=== PATIENT | female | born 1990 | race Caucasian/White ===

== ENCOUNTER → 2018-08-09 12:10 | Outpatient (CLI) | payer OTHER, SELFPAY ==
[2018-08-09 12:32] LABS: Add Manual Diff / Slide Review NO; Basophils Absolute Auto 0 /uL (0-100); Basophils Percent Auto 0.3 % (0-2); Eosinophils Absolute Auto 100 /uL (0-450); Hematocrit 43.5 % (36-46); Hemoglobin 15.1 g/dL (12.0-16.0); Lymphocytes Absolute Auto 2100 /uL (1100-4500); Lymphocytes Percent Auto 23.9 % (25-40); Mean Corpuscular HGB Conc 34.6 % (30-36); Mean Corpuscular Volume 89.4 fL (80-100); Monocytes Absolute Auto 600 /uL (0-900); Monocytes Percent Auto 6.9 % (3-14); Neutrophils Absolute Auto 6000 /uL (1500-7000); Neutrophils Percent Auto 67.9 % (50-75); Platelet Count 262 X10^3/uL (150-400); Red Blood Cell Count 4.87 X10^6/uL (4.0-5.2); Red Cell Distribution Width 13.2 % (11.6-14.8); White Blood Cell Count 8.8 X10^3/uL (4.5-11.0)
[2018-08-09 12:44] LABS: Alanine Aminotransferase 29 IU/L (9-52); Albumin 4.6 g/dL (3.5-5.0); Albumin Globulin Ratio 1.7 (1.0-2.8); Alkaline Phosphatase 96 U/L (38-126); Aspartate Aminotransferase 20 IU/L (14-36); BUN Creatinine Ratio 15.7 (6-22); Bilirubin Total 0.2 mg/dL (0.2-1.3); Blood Urea Nitrogen 11 mg/dL (7-17); Calcium 9.7 mg/dL (8.4-10.2); Carbon Dioxide 24 mmol/L (22-32); Chloride 101 mmol/L (98-107); Estimated Glomerular Filt Rate > 60.0 mL/min (>60); Globulin 2.7 g/dL (1.7-4.1); Glucose 88 mg/dL (70-100); HEMOLYSIS < 15 (0-50); Sodium 138 mmol/L (137-145); Total Protein 7.3 g/dL (6.3-8.2)
[2018-08-09 13:13] LABS: TSH w/ Reflex to FT4 1.82 uIU/mL (0.47-4.68)
== END ==
PROVIDERS: PCP Family Medicine; Visit Provider Family Medicine
DX: R53.83 Other fatigue (principal)
CPT/HCPCS: 36415; 80053; 84443; 85025

== ENCOUNTER → 2018-09-20 11:22 | Outpatient (CLI) | payer OTHER, SELFPAY ==
[2018-09-20 12:04] LABS: Add Manual Diff / Slide Review NO; Basophils Absolute Auto 0 /uL (0-100); Basophils Percent Auto 0.3 % (0-2); Eosinophils Absolute Auto 100 /uL (0-450); Eosinophils Percent Auto 1.2 % (2-4); Hematocrit 41.6 % (36-46); Hemoglobin 14.2 g/dL (12.0-16.0); Lymphocytes Absolute Auto 1800 /uL (1100-4500); Lymphocytes Percent Auto 23.3 % (25-40); Mean Corpuscular HGB Conc 34.2 % (30-36); Mean Corpuscular Volume 90.8 fL (80-100); Monocytes Absolute Auto 500 /uL (0-900); Monocytes Percent Auto 6.8 % (3-14); Neutrophils Absolute Auto 5400 /uL (1500-7000); Neutrophils Percent Auto 68.4 % (50-75); Platelet Count 241 X10^3/uL (150-400); Red Blood Cell Count 4.58 X10^6/uL (4.0-5.2); White Blood Cell Count 7.9 X10^3/uL (4.5-11.0)
[2018-09-20 12:38] LABS: Appearance Urine UA CLEAR; Bilirubin Urine UA NEGATIVE (NEGATIVE); Color Urine UA YELLOW; Glucose Urine UA NEGATIVE (Negative); Ketones Urine UA NEGATIVE (NEGATIVE); Leukocyte Esterase Urine UA TRACE (NEGATIVE); Nitrite Urine UA NEGATIVE (Negative); Occult Blood Urine UA TRACE-LYSED (Negative); Protein Urine UA NEGATIVE (Negative); Specific Gravity Urine UA 1.015 (1.000-1.035); Urobilinogen Urine UA 0.2 E.U./dL (0.2)
[2018-09-20 12:51] LABS: Bacteria Urine None Seen
[2018-09-20 13:01] LABS: Amorphous Sediment Urine 1+; RBC Urine 0-1/HPF (0-5/HPF); Squamous Epithelial Cell Urine 5-10 /HPF; WBC Urine 5-10/HPF (0-5/HPF)
[2018-09-20 17:16] LABS: Hepatitis B Surface Antigen NEGATIVE s/c (NEGATIVE)
[2018-09-20 17:17] LABS: Rubella Antibody IgG 16.9 IU/mL (>15)
[2018-09-20 17:39] LABS: HIV 1 and 2 Antibody NEGATIVE (NEGATIVE); Hep C Virus Ab w/Reflex Quant NEGATIVE s/c (NEGATIVE)
[2018-09-22 12:44] LABS: RPR Screen Nonreactive (Nonreactive)
== END ==
PROVIDERS: PCP Family Medicine; Visit Provider Family Medicine
DX: Z34.81 Encounter for supervision of other normal pregnancy, first trimester (principal)
CPT/HCPCS: 36415; 80055; 81003; 81015; 86703; 86787; 86803; 86850; 86900; 86901; 87077; 87086

== ENCOUNTER → 2018-11-21 16:12 | Outpatient (CLI) | payer OTHER, SELFPAY ==
[2018-11-27 14:10] LABS: AFP, Serum 27.7 ng/mL; Cigarette Smoker NOT GIVEN; Donated Egg NOT GIVEN; Donor Egg Age NOT GIVEN; Estriol, Free 0.83 ng/mL; Inhibin A, Dimeric 140 pg/mL; Maternal Ethnicity CAUCASIAN; Maternal Weight 170 lbs; Number of Fetuses 1; Previous Pregnancy Down Syndro NOT GIVEN; hCG, MoM 1.03; hCG, Serum 33.3 IU/mL
== END ==
PROVIDERS: PCP Family Medicine; Visit Provider Family Medicine
DX: Z34.80 Encounter for supervision of other normal pregnancy, unspecified trimester (principal); Z3A.16 16 weeks gestation of pregnancy
CPT/HCPCS: 36415; 82105; 82677; 84702; 86336

== ENCOUNTER → 2018-12-19 08:09 | Outpatient (CLI) | payer OTHER, SELFPAY ==
--- NOTE | 2018-12-19 08:10 | DI.US.S_ITS ---
PROCEDURE: US OB >= 14 WEEKS FETUS INDICATIONS: 20 WEEK SCREENING OUTSIDE/PRIOR DATING DATA: Last menstrual period (LMP): Not available. LMP-based estimated date of delivery (EH): Not available. First dating scan (date and location): 09/26/2018 at [facility]. Estimated date of delivery (EH) from first dating scan: 05/08/2019. TECHNIQUE: Real-time scanning was performed of the fetus, with image documentation and biometric measurements. Endovaginal scanning: Not performed COMPARISON: [facility], , OB >= 14 WEEKS FETUS, 09/26/2018, 8:25. FINDINGS: General: A single living intrauterine gestation is present. Presentation: Transverse. Placenta: Placental position is posterior, without previa. Amniotic fluid index: 15.7 cm (the largest pocket 4.7 cm), normal range is 5-24 cm. heart rate: 153 beats per minute. Maternal cervical canal: 4.0 cm long. Normal lower limit is 2.5 cm. biometrics: Biparietal diameter: 19 weeks 5 days Head circumference: 20 weeks 0 day Abdominal circumference: 20 weeks 3 days Femur length: 19 weeks 6 days Estimated gestational age from initial scan: 20 weeks 0 day. Composite gestational age from present scan: 20 weeks 0 day Estimated weight and percentile: 355 gm, 54% for gestational age Measurement variability for biometric dating: +/- 7 days from 14 weeks to 15 weeks 6 days gestation, +/- 10 days from 16 weeks to 21 weeks 6 days gestation, +/- 2 weeks from 22 weeks to 27 weeks 6 days gestation, +/- 3 weeks for 28 weeks gestation or later. weight reference: 4500 g or EFW >90/95% is considered macrosomia or large for gestational age. EFW <10% is small for gestational age. EFW 5% or less is considered intra-uterine growth restriction. Anatomic survey: Neuro: Ventricles are non-dilated at less than 10 mm. Cisterna magna is normal at 3-11 mm. Cerebellum is normal in size and morphology. Nuchal skin fold: Normal at less than 6 mm between 14-21 weeks gestational age. Face: Nose and lips, facial profile are normal. Spine: No evidence for spina bifida. Heart: 4-chambered heart is present, with normal ventricular outflow tracts. Diaphragm: Diaphragm is intact. Stomach: Left-sided stomach is present. Kidneys: No hydronephrosis. Normal is less than 5 mm in 2nd trimester, less than 7 mm in 3rd trimester. Cord: 3-vessel cord has orthotopic insertion. Bladder: Normal in size. Extremities: All 4 extremities identified. IMPRESSION: 1. A single living intrauterine gestation with appropriate interval growth. 2. Normal anatomic survey. Dictated by: Ean So M.D. on 12/19/2018 at 13:33 Approved by: Ean So M.D. on 12/19/2018 at 13:37
== END ==
PROVIDERS: PCP Family Medicine; Visit Provider Family Medicine
DX: Z36.89 Encounter for other specified antenatal screening (principal); Z3A.20 20 weeks gestation of pregnancy
CPT/HCPCS: 76811

== ENCOUNTER → 2019-01-26 08:16 | Outpatient (CLI) | payer OTHER, SELFPAY ==
[2019-01-26 10:12] LABS: Hematocrit 36.9 % (36-46); Hemoglobin 12.7 g/dL (12.0-16.0)
[2019-01-26 10:25] LABS: GTT (PREG) 1 Hour PP 50gm Dose 166 mg/dL (76-139)
== END ==
PROVIDERS: PCP Family Medicine; Visit Provider Family Medicine
DX: Z34.02 Encounter for supervision of normal first pregnancy, second trimester (principal); Z3A.24 24 weeks gestation of pregnancy
CPT/HCPCS: 36415; 82950; 85014; 85018

== ENCOUNTER → 2019-02-05 08:29 | Outpatient (CLI) | payer OTHER, SELFPAY ==
[2019-02-05 10:31] LABS: Glucose 1 Hour Gest 185 mg/dL (76-180)
[2019-02-05 10:37] LABS: Glucose Fasting Gestational 75 mg/dL (76-95)
[2019-02-05 11:28] LABS: Glucose 2 Hour Gest 159 mg/dL (76-155)
[2019-02-05 11:48] LABS: Glucose Tol Interp,Gestational INTERPRETATION
[2019-02-05 13:09] LABS: Glucose 3 Hour Gest 85 mg/dL (76-140)
== END ==
PROVIDERS: PCP Family Medicine; Visit Provider Family Medicine
DX: O99.810 Abnormal glucose complicating pregnancy (principal)
CPT/HCPCS: 36415; 82951; 82952

== ENCOUNTER 2019-03-30 10:05 | Outpatient (CLI) | payer OTHER, SELFPAY | END 2019-03-30 10:44 | disposition home or self-care (01) | LOC: LABOR 10:17 → OB 04-03 13:15 | PROVIDERS: PCP Family Medicine; Visit Provider Family Medicine | DX: O24.415 Gestational diabetes mellitus in pregnancy, controlled by oral hypoglycemic drugs (principal); Z3A.34 34 weeks gestation of pregnancy | CPT/HCPCS: 59025; G0378; G0379 ==

== ENCOUNTER 2019-04-06 09:37 | Outpatient (CLI) | payer OTHER, SELFPAY | END 2019-04-06 10:06 | disposition home or self-care (01) | LOC: OB 04-10 12:39 | PROVIDERS: PCP Family Medicine; Visit Provider Family Medicine | DX: O24.415 Gestational diabetes mellitus in pregnancy, controlled by oral hypoglycemic drugs (principal); Z3A.35 35 weeks gestation of pregnancy | CPT/HCPCS: 59025; G0378; G0379 ==

== ENCOUNTER → 2019-04-11 08:41 | Outpatient (CLI) | payer OTHER, SELFPAY ==
[2019-04-12 13:43] LABS: Strep Grp B PCR NEG for Grp B Strep
== END ==
PROVIDERS: PCP Family Medicine; Visit Provider Family Medicine
DX: Z34.83 Encounter for supervision of other normal pregnancy, third trimester (principal); Z3A.36 36 weeks gestation of pregnancy
CPT/HCPCS: 87653

== ENCOUNTER 2019-04-11 10:08 | Outpatient (CLI) | payer OTHER, SELFPAY ==
--- NOTE | 2019-04-16 06:07 | P.TNLD_ITS ---
Visit Information Visit Information Date of evaluation: 04/11/19 Primary OB Provider: Nicanor King On-call OB Provider: Yola Nieves Reason for Evaluation: Yes non-stress test non-stress test reason: diabetes [facility] Medical History (Updated 04/16/19 @ 06:09 by Yola Nieves MD) Gestational diabetes (Acute) Social History marital status: number of children: 1 household members: spouse and children Smoking Status: Former smoker alcohol intake: never substance use type: does not use Social History marital status: number of children: 1 household members: spouse and children Smoking Status: Former smoker alcohol intake: never substance use type: does not use Evaluation Evaluation Baseline heart rate: 130 Variability: Moderate (11-25) monitor accelerations: Present monitor decelerations: Absent Category of Tracing: I Diagnosis, Plan/Disposition Plan/Disposition Plan: Assessment 28-year-old with gestational diabetes with a category 1 nonstress test Plan: Follow-up with OB provider as scheduled Repeat nonstress test in 1 week OB Disposition: home
== END 2019-04-11 11:15 | disposition home or self-care (01) ==
LOC: OB 04-13 13:38
PROVIDERS: PCP Family Medicine; Visit Provider Family Medicine
DX: O24.415 Gestational diabetes mellitus in pregnancy, controlled by oral hypoglycemic drugs (principal); Z3A.36 36 weeks gestation of pregnancy
CPT/HCPCS: 59025; 87653; G0378; G0379

== ENCOUNTER 2019-04-18 09:44 | Outpatient (CLI) | payer OTHER, SELFPAY | END 2019-04-18 10:40 | disposition home or self-care (01) | LOC: LABOR 10:12 → OB 04-19 09:09 | PROVIDERS: PCP Family Medicine; Visit Provider Family Medicine | DX: O24.415 Gestational diabetes mellitus in pregnancy, controlled by oral hypoglycemic drugs (principal); Z3A.37 37 weeks gestation of pregnancy | CPT/HCPCS: 59025; G0378; G0379 ==

== ENCOUNTER 2019-04-25 09:40 | Outpatient (CLI) | payer OTHER, SELFPAY | END 2019-04-25 10:30 | disposition home or self-care (01) | LOC: OB 04-30 15:01 | PROVIDERS: PCP Family Medicine; Visit Provider Family Medicine | DX: O24.415 Gestational diabetes mellitus in pregnancy, controlled by oral hypoglycemic drugs (principal); Z3A.38 38 weeks gestation of pregnancy | CPT/HCPCS: 59025; G0378; G0379 ==

== ENCOUNTER 2019-05-03 05:44 | Inpatient (IN) | payer OTHER, SELFPAY ==
[2019-05-03 06:30] VITALS: BP 101/65
[2019-05-03 06:39] LABS: Add Manual Diff / Slide Review NO; Basophils Absolute Auto 0 /uL (0-100); Basophils Percent Auto 0.5 % (0-2); Eosinophils Absolute Auto 0 /uL (0-450); Eosinophils Percent Auto 0.6 % (2-4); Hematocrit 37.6 % (36-46); Hemoglobin 12.7 g/dL (12.0-16.0); Lymphocytes Absolute Auto 1400 /uL (1100-4500); Lymphocytes Percent Auto 21.5 % (25-40); Mean Corpuscular HGB Conc 33.7 % (30-36); Mean Corpuscular Hemoglobin 30.3 PG (26-34); Mean Corpuscular Volume 90.1 fL (80-100); Monocytes Absolute Auto 500 /uL (0-900); Neutrophils Absolute Auto 4400 /uL (1500-7000); Neutrophils Percent Auto 69.4 % (50-75); Platelet Count 144 X10^3/uL (150-400); Red Blood Cell Count 4.18 X10^6/uL (4.0-5.2); Red Cell Distribution Width 14.2 % (11.6-14.8); White Blood Cell Count 6.4 X10^3/uL (4.5-11.0)
[2019-05-03] MEDS: LACTATED RINGERS 1,000 ML 999 ML IV (06:40)
[2019-05-03] MEDS: LACTATED RINGERS 1,000 ML 100 ML IV ×2 (06:50→12:01)
--- NOTE | 2019-05-03 07:09 | PM.HP.1 ---
History of Present Illness History of Present Illness Date Patient Seen: 05/03/19 Time Patient Seen: 07:10 Chief complaint: [id number] REPEAT Narrative: 28-year-old female G1 para 2 estimated delivery date of 05/08/2019 she is 39 weeks +2 days. She is admitted to the hospital for repeat section previous done for failure to progress and distress. Baby's weight at that time was 7 lb 5 oz. Patient establish care at 9 weeks gestational age. Her initial weight was 170 lb. Current weight is 190 lb. With a total weight gain of 20 lb during the . 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 Her blood sugars and diet were well controlled her weight gain was well controlled. medication list includes citalopram metformin and vitamins. During her we she received the Tdap and flu vaccine a GBS status is negative. Other blood work shows O-positive blood type antibody screen negative hepatitis-B surface antigen negative HIV negative rubella immune GC chlamydia negative 1st trimester aneuploidy screen negative repeat hemoglobin 12.7 abnormal 1 hour GGT at 166 as well as abnormal 3 hour GGT. Twenty week ultrasound showed normal anatomy scan. During the last trimester patient had weekly NSTs with normal reactive strips. Patient states today she is feeling fine has no concerns or complaints of headache dizziness lightheadedness fevers chills nausea vomiting. Past medical history of patient includes anxiety and depression Okeefe syndrome Previous surgical history includes and colonoscopies annually. Social history. Patient was smoking pre has quit during the . Patient History Medical History (Updated 04/16/19 @ 06:09 by Yola Nieves MD) Gestational diabetes (Acute) Social History marital status: number of children: 1 household members: spouse and children Smoking Status: Former smoker alcohol intake: never substance use type: does not use Family & Social History Social History: household members spouse,children Tobacco & Substance use: Smoking Status Former smoker alcohol intake never Meds Home Medications and Allergies Home Medications Medication Instructions Recorded Confirmed Type citalopram 10 mg tablet 10 mg PO DAILY #30 tab 11/13/18 05/03/19 Rx metformin 500 mg tablet 500 mg PO BID #60 tab 02/13/19 05/03/19 Rx Allergies Allergy/AdvReac Type Severity Reaction Status Date / Time No Known Drug Allergies Allergy Verified 05/03/19 06:32 Exam Vital Signs (past 8 hours): - 05/03/19 06:30 Blood Pressure 101/65 Narrative Exam Narrative: . General: Alert no apparent distress. Affect is appropriate. Dwight it is uncomfortable. HEENT: Neck is supple without lymphadenopathy pupils equal round and reactive. Cardio: S1-S2 regular rate and rhythm. Respiratory: Lungs clear to auscultation. Abdomen: Gravid. Extremities: Normal deep tendon reflexes trace edema. [place]: Sporadic contractions heart tones: heart tones 135 category 1 tracing Objective Labs Result Diagrams: 05/03/19 06:15 Labs: Laboratory Results - last 24 hr 05/03/19 06:15 WBC 6.4 RBC 4.18 Hgb 12.7 Hct 37.6 MCV 90.1 MCH 30.3 MCHC 33.7 RDW 14.2 Plt Count 144 L Neut % (Auto) 69.4 Lymph % (Auto) 21.5 L [place] % (Auto) 8.0 Eos % (Auto) 0.6 L Baso % (Auto) 0.5 Neut # (Auto) 4400 Lymph # (Auto) 1400 [place] # (Auto) 500 Eos # (Auto) 0 Baso # (Auto) 0 Assessment & Plan Assessment & Plan narrative: 28-year-old female G2 para 1 at 39+ weeks comes in today for repeat section. Preoperative orders were written for type and screen CBC and IV fluids. Antibiotics have a T10 percussion instrument repairer. Reviewed procedure with patient patient's partner and family her in the room. Discussed risks benefits and common complications. Reviewed previous signed consent the patient. Risks of procedure including bleeding infection injury to bladder or bowel. We discussed the postoperative recourse and anesthesia for the procedure. All patient questions were answered. Patient's blood counts were normal platelet count was normal. A type and screen is good. Patient's GBS status is reviewed.
[2019-05-03] MEDS: CEFOTETAN 2 GM/50 ML PIGGYBACK IV (08:05)
--- NOTE | 2019-05-03 08:18 | SUR.OPER ---
Surgical consent was not signed, that's why patient is few minutes late in OR.
--- NOTE | 2019-05-03 08:21 | SUR.OPER ---
Supine on Padded OR bed, head on pillow, safety belt at thigh, arms secured on padded arm boards at <90 degrees abduction. Bump under right buttock. Legs uncrossed with pillow under knees, gel pad to heels, tape over blanket to lower legs.
--- NOTE | 2019-05-03 08:45 | SUR.OPER ---
FHR 135 TOB 08:27 alive girl Cord blood x 2 and placenta given to OB nurse
--- NOTE | 2019-05-03 09:14 | P.PCN_ITS ---
Procedures Date/Time Date of procedure: 05/03/19 Time of procedure: 09:14 General Procedure description: Procedure: Lower segment transverse section Consent: Verbal and written informed consent were obtained from the patient placed on the chart. Indications: 28-year-old G2 para 1 repeat section Findings: Normal uterus normal ovaries Normal female infant in vertex position Anesthesia: Spinal Surgeon: Dr. Nicanor King Bulk Plant Supervisor: Dr. Mini Nieves Estimated blood loss: 500 mL Drains: Jernigan to gravity. IV fluids: 1800 LR Description of procedure: The patient was brought to the operating room after her spinal epidural, preparation, and Jernigan had been performed. The abdomen was prepped and draped in tested for for analgesia. When it was found to be adequate, a lower abdominal Pfannenstiel incision was made with first with a knife and cared down to the fascia with a second knife. The fascia was incised in the midline and extended laterally with a knife. Bleeding points were clamped with hemostats a nd Bovie coagulated. The rectus muscles were by blunt dissection. The rectus muscles were divided in the midline and the peritoneum was grasped with hemostats and carefully entered with Amor scissors. The incision was extended bilaterally. The bladder blade was then placed. The vesicoperitoneum was grasped with smooth pickups, entered with Metzenbaum scissors, and extended laterally. The bladder flap was created by gently blunt dissection and placed behind the bladder blade. The lower uterine segment was noted not to be fully developed it was carefully incised with the scalpel and extended laterally with the fingers. A live was found to be in the vertex position. The head was then easily elevated with the hand. Head was delivered with the use of a vacuum. The baby was then suctioned and cried immediately, and was handed to the waiting attendant. The placenta was delivered manually. The uterus was explored with a wet lap sponge and found to be clear membranes. The first layer of the uterine closure was with running locking #1 chromic catgut suture. The second layer with an imbricating #1 chromic catgut suture. Hemostasis was carefully checked and fou nd to be satisfactory. The bladder flap was closed with a running 2-0 chromic catgut suture. After sponge and needle counts were found to be correct the peritoneum was closed with 2-0 chromic catgut suture. Rectus muscles were approximated in the lower midline. The fascia was closed with a 2 running 0 Vicryl from lateral to midline. The subcutaneous tissue was approximated with interrupted 2.0 plain gut. Bleeding points were Bovie and coagulated. The subcutaneous tissue was approximated with 2.0 plain gut suture. The skin was closed with 1-0 running subcuticular stitch. Urinary output was adequate and normal patient left to the recovery room in good condition.
[2019-05-03 09:22] VITALS: BP 114/60; BP 97/64; PULSE 65; PULSE 71; RESP 12; RESP 18; TEMP 36.5; O2SAT 96; O2SAT 97
[2019-05-03 09:27] VITALS: BP 101/66; PULSE 61; RESP 16; O2SAT 96
[2019-05-03 09:32] VITALS: BP 104/64; PULSE 64; RESP 17; O2SAT 97
[2019-05-03 09:37] VITALS: BP 108/57; PULSE 61; RESP 16; O2SAT 95
[2019-05-03 09:42] VITALS: BP 102/66; PULSE 65; RESP 17; O2SAT 96
--- NOTE | 2019-05-03 09:56 | SUR.PHASEI ---
Pt transferred to BC 1 in stable condition. Pad changed with a small amount bleeding noted with only a small clot noted. Fundas is 3 finger below umbilicus and spinal is at the T8 level. Oral intake provided and pt tolerated well. VSS on transfer
[2019-05-03] MEDS: diphenhydrAMINE 50 MG/ML VIAL 25 MG IV (10:19)
[2019-05-03] MEDS: HYDROCODONE/ACET 5/325 TABLET 2 TAB PO (11:34)
[2019-05-03] MEDS: NALBUPHINE 20 MG/ML AMPUL 5 MG IV ×2 (11:55→18:12)
[2019-05-03] MEDS: KETOROLAC 30 MG/ML VIAL IV ×2 (14:12→19:54)
[2019-05-03] MEDS: OXYCODONE/ACETAMINOPHEN 5/325 TABLET 2 TAB PO ×2 (16:03→19:53)
[2019-05-04] MEDS: OXYCODONE/ACETAMINOPHEN 5/325 TABLET 2 TAB PO ×6 (00:22→20:48)
[2019-05-04] MEDS: KETOROLAC 30 MG/ML VIAL IV (01:59)
[2019-05-04 08:33] LABS: Add Manual Diff / Slide Review NO; Basophils Absolute Auto 0 /uL (0-100); Basophils Percent Auto 0.3 % (0-2); Eosinophils Absolute Auto 0 /uL (0-450); Eosinophils Percent Auto 0.7 % (2-4); Hematocrit 33.1 % (36-46); Hemoglobin 11.4 g/dL (12.0-16.0); Lymphocytes Absolute Auto 1100 /uL (1100-4500); Lymphocytes Percent Auto 18.7 % (25-40); Mean Corpuscular HGB Conc 34.4 % (30-36); Mean Corpuscular Hemoglobin 30.9 PG (26-34); Mean Corpuscular Volume 89.9 fL (80-100); Monocytes Absolute Auto 500 /uL (0-900); Monocytes Percent Auto 7.7 % (3-14); Neutrophils Absolute Auto 4300 /uL (1500-7000); Neutrophils Percent Auto 72.6 % (50-75); Platelet Count 117 X10^3/uL (150-400); Red Blood Cell Count 3.69 X10^6/uL (4.0-5.2); Red Cell Distribution Width 14.3 % (11.6-14.8)
[2019-05-04] MEDS: PRENATAL VIT,CALC/IRON/FOLIC 1 TABLET 1 TAB PO (08:47)
--- NOTE | 2019-05-04 09:56 | PM.PN.1 ---
Subjective Subjective Date Patient Seen: 05/04/19 Time Patient Seen: 09:56 Interval history: day 1. Status post . Patient is doing well. Vital signs are stable. Hemoglobin hematocrit is stable. Breast-feeding okay. Itching has improved. She is tolerating her diet. Patient has been up ambulating. Jernigan catheter is out. Urinating okay. Pain controlled. Exam Vital Signs (past 8 hours): Oxygen Delivery Method Room Air Narrative Exam Narrative: General: Alert no apparent distress. Affect is appropriate. Dwight it is uncomfortable. HEENT: Neck is supple without lymphadenopathy pupils equal round and reactive. Cardio: S1-S2 regular rate and rhythm. Respiratory: Lungs clear to auscultation. Abdomen: Uterus firm. Incision clean dry and intact. Extremities: Normal deep tendon reflexes trace edema. Objective Labs Result Diagrams: 05/04/19 08:15 Labs: Laboratory Results - last 24 hr 05/04/19 08:15 WBC 6.0 RBC 3.69 L Hgb 11.4 L Hct 33.1 L MCV 89.9 MCH 30.9 MCHC 34.4 RDW 14.3 Plt Count 117 L Neut % (Auto) 72.6 Lymph % (Auto) 18.7 L [place] % (Auto) 7.7 Eos % (Auto) 0.7 L Baso % (Auto) 0.3 Neut # (Auto) 4300 Lymph # (Auto) 1100 [place] # (Auto) 500 Eos # (Auto) 0 Baso # (Auto) 0 Assessment & Plan Assessment & Plan narrative: day 1. Doing well ambulating tolerating diet pain is well controlled. Will continue with oral pain medication and advancing diet. Working on breast-feeding. Hemoglobin hematocrit stable.
[2019-05-04] MEDS: IBUPROFEN 600 MG TABLET PO ×3 (10:59→22:56)
[2019-05-04] MEDS: DOCUSATE 100 MG CAPSULE PO (20:48)
[2019-05-05] MEDS: OXYCODONE/ACETAMINOPHEN 5/325 TABLET 2 TAB PO ×3 (00:59→09:09)
[2019-05-05] MEDS: IBUPROFEN 600 MG TABLET PO ×2 (05:11→12:16)
--- NOTE | 2019-05-05 06:39 | PM.DS.1 ---
History of Present Illness History of Present Illness Chief complaint: [id number] REPEAT Narrative: 28-year-old female G1 para 2 estimated delivery date of 05/08/2019 she is 39 weeks +2 days. She is admitted to the hospital for repeat section previous done for failure to progress and distress. Baby's weight at that time was 7 lb 5 oz. Patient establish care at 9 weeks gestational age. Her initial weight was 170 lb. Current weight is 190 lb. With a total weight gain of 20 lb during the . 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 Her blood sugars and diet were well controlled her weight gain was well controlled. medication list includes citalopram metformin and vitamins. During her we she received the Tdap and flu vaccine a GBS status is negative. Other blood work shows O-positive blood type antibody screen negative hepatitis-B surface antigen negative HIV negative rubella immune GC chlamydia negative 1st trimester aneuploidy screen negative repeat hemoglobin 12.7 abnormal 1 hour GGT at 166 as well as abnormal 3 hour GGT. Twenty week ultrasound showed normal anatomy scan. During the last trimester patient had weekly NSTs with normal reactive strips. Patient states today she is feeling fine has no concerns or complaints of headache dizziness lightheadedness fevers chills nausea vomiting. Past medical history of patient includes anxiety and depression Okeefe syndrome Previous surgical history includes and colonoscopies annually. Social history. Patient was smoking pre has quit during the . Discharge Providers Provider Date of admission: 05/03/19 05:44 Discharge Date: 05/05/19 Primary care physician: Nicanor King MD Consults: 05/03/19 10:00 Consult to Solar Installation Manager Routine Comment: Discharge provider: Nicanor King MD Summary Hospital Course Discharge Diagnosis: Term intrauterine Repeat section Routine care Hospital Course: Patient admitted to the hospital for repeat section. was completed without difficulty. Patient on postoperative day 1 had Jernigan catheter removed SCDs removed she was up ambulating and urinating. Postoperative day 2 she was tolerating her diet. Pain was well controlled. No swelling vital signs were afebrile. And vaginal discharge was as anticipated. Mom was breast-feeding and baby was doing well. Exam Vital Signs (past 8 hours): Oxygen Delivery Method Room Air Narrative Exam Narrative: General: Alert no apparent distress. Affect is appropriate. [place] it is uncomfortable. HEENT: Neck is supple without lymphadenopathy pupils equal round and reactive. Cardio: S1-S2 regular rate and rhythm. Respiratory: Lungs clear to auscultation. Abdomen: Uterus firm. Incision clean dry and intact. Extremities: Normal deep tendon reflexes trace edema. Objective Labs Result Diagrams: 05/04/19 08:15 Labs: Laboratory Results - last 24 hr 05/04/19 08:15 WBC 6.0 RBC 3.69 L Hgb 11.4 L Hct 33.1 L MCV 89.9 MCH 30.9 MCHC 34.4 RDW 14.3 Plt Count 117 L Neut % (Auto) 72.6 Lymph % (Auto) 18.7 L [place] % (Auto) 7.7 Eos % (Auto) 0.7 L Baso % (Auto) 0.3 Neut # (Auto) 4300 Lymph # (Auto) 1100 [place] # (Auto) 500 Eos # (Auto) 0 Baso # (Auto) 0 Discharge Plan Discharge Plan Patient Disposition: Home Discharge comment: Follow-up Dr. King in 7-10 days for incision check. Call office a temperature higher than 101 bleeding more than 4 pads an hour. Discharge Med Rec/Prescriptions Prescriptions: New oxycodone-acetaminophen 5-325 mg Tablet 2 tab PO Q4HR PRN (Reason: Pain, Severe (7-10)) Qty: 30 RF: 0 docusate sodium [DOK] 100 mg Capsule 100 mg PO BID Qty: 30 RF: 0 ibuprofen 600 mg Tablet 600 mg PO Q6HR PRN (Reason: As Needed For Fever/Mild Pain) Qty: 30 RF: 0 Prenatabs Rx 29 mg iron- 1 mg Tablet 1 tab PO DAILY Qty: 90 RF: 0 Continued citalopram 10 mg tablet 10 mg PO DAILY Qty: 30 RF: 11 Discontinued metformin 500 mg tablet 500 mg PO BID Qty: 60 RF: 3 Follow up/Referrals: Nicanor King MD [Primary Care Provider] - Visit Report/Discharge Packet Visit Report Forms: Patient Portal/API, Stroke Signs & Symptoms Discharge Data Primary Care Provider: Nicanor King
[2019-05-05 07:10] VITALS: BP 105/64; PULSE 95; RESP 17; TEMP 36.3
[2019-05-05 09:09] VITALS: TEMP 36.3
[2019-05-05] MEDS: DOCUSATE 100 MG CAPSULE PO (09:09)
[2019-05-05] MEDS: PRENATAL VIT,CALC/IRON/FOLIC 1 TABLET 1 TAB PO (09:09)
== END 2019-05-05 12:15 | disposition home or self-care (01) | DRG 788 ==
PROVIDERS: Admitting Provider Family Medicine; PCP Family Medicine; Visit Provider Family Medicine
PROC: 10D00Z1 Extraction of Products of Conception, Low, Open Approach (ICD-10-PCS; CPT 59514; principal; 2019-05-03 07:45)
DX: O24.425 Gestational diabetes mellitus in childbirth, controlled by oral hypoglycemic drugs (principal); O34.211 Maternal care for low transverse scar from previous cesarean delivery; Z3A.39 39 weeks gestation of pregnancy; Z37.0 Single live birth
CPT/HCPCS: 36415; 59050; 59510; 59514; 85025; 86850; 86900; 86901; J1200; J1885; J2274; J2300; J2405; J2590

== ENCOUNTER → 2020-01-11 11:47 | Outpatient (CLI) | payer OTHER, SELFPAY ==
[2020-01-14 08:35] LABS: COVID19 Sendout Not Detected (Not Detect)
== END ==
PROVIDERS: PCP Family Medicine; Visit Provider Physician Assistant
DX: Z01.812 Encounter for preprocedural laboratory examination (principal)
CPT/HCPCS: 87635

== ENCOUNTER → 2020-01-11 12:10 | Outpatient (CLI) | payer OTHER, SELFPAY ==
--- NOTE | 2020-01-11 | DI.CT.S_ITS ---
PROCEDURE: CT SINUS SCREEN WO CON INDICATIONS: Other chronic sinusitis TECHNIQUE: Noncontrast 3.0 mm axial images acquired from the frontal sinuses to the mid-sella, with coronal and sagittal reformats. For radiation dose reduction, the following was used: automated exposure control, adjustment of mA and/or kV according to patient size. COMPARISON: None. FINDINGS: Image quality: Excellent. Maxillary Sinuses: No bony remodeling or destruction. Sinuses are clear. Ethmoid Air Cells: No bony remodeling or destruction. Sinuses are clear. Sphenoid Sinuses: No bony remodeling or destruction. Sinuses are clear. Frontal Sinuses: No bony remodeling or destruction. Sinuses are clear. Ostiomeatal Complexes: Ostiomeatal complexes are patent. No Ad cells. Miscellaneous: Visualized intra-orbital contents are normal. No clementine bullosa or paradoxical turbinate curvature. Mild leftward nasal septal deviation. IMPRESSION: 1. No evidence of sinusitis. 2. Mild leftward nasal septal deviation. Dictated by: Prosper Pedroza M.D. on 01/11/2020 at 13:43 Approved by: Prosper Pedroza M.D. on 01/11/2020 at 13:44
== END ==
PROVIDERS: PCP Family Medicine; Referring Provider Otolaryngology; Visit Provider Otolaryngology
DX: J32.8 Other chronic sinusitis (principal); J34.2 Deviated nasal septum
CPT/HCPCS: 70486

== ENCOUNTER 2020-01-14 07:18 | Day surgery (SDC) | payer OTHER, SELFPAY ==
[2020-01-14] VITALS (8 sets, daily range): BP systolic 71–109; BP diastolic 44–85; PULSE 64–90; RESP 13–16; TEMP 36.3–36.6; O2SAT 96–97; BMI 31.1
[2020-01-14] MEDS: LACTATED RINGERS 1,000 ML 200 ML IV ×2 (07:54→09:15)
--- NOTE | 2020-01-14 08:16 | PM.HP.1 ---
History of Present Illness History of Present Illness Date Patient Seen: 01/14/20 Time Patient Seen: 08:16 Chief complaint: [id number] Narrative: This is a 29-year-old female with Okeefe syndrome who presents for routine screening EGD and colonoscopy. Her last double endoscopy was 2016 which demonstrated an adenomatous polyp within the colon which was removed. She has had no changes in her general health since was last seen in the office 4 months ago. She is without nausea vomiting hematemesis blood per rectum or diarrhea. No significant past medical history. Patient History Medical History Gestational diabetes (Acute) Surgical History H/O section (Acute) Family & Social History Family History Other Okeefe syndrome Social History: household members spouse,children Tobacco & Substance use: Smoking Status Former smoker alcohol intake never Substance Use Type does not use Meds Home Medications and Allergies Home Medications Medication Instructions Recorded Confirmed Type vit,[id number] 1 tab PO DAILY #90 tab 05/05/19 01/14/20 Rx [Prenatabs Rx] omeprazole magnesium 20 mg 20 mg PO DAILY #30 cap 07/31/19 01/14/20 Rx capsule,delayed release citalopram 20 mg tablet 20 mg PO DAILY 08/22/19 01/14/20 History zolpidem 10 mg tablet 10 mg PO BEDTIME PRN 08/22/19 01/14/20 History cyclobenzaprine 10 mg tablet 10 mg PO BEDTIME #30 tab 08/29/19 01/14/20 Rx Allergies Allergy/AdvReac Type Severity Reaction Status Date / Time No Known Drug Allergies Allergy Verified 01/14/20 07:31 Review of Systems Review of Systems Narrative: A 10 point review of systems is negative except as noted in the HPI Exam Vital Signs (past 8 hours): - 01/14/20 07:45 Temperature 97.8 F Pulse Rate 88 Respiratory Rate 16 Blood Pressure 96/69 Pulse Oximetry 97 Oxygen Delivery Method Room Air Narrative Exam Narrative: General-no acute distress, well nourished HEENT-moist mucous membranes, no scleral icterus Neck-supple, no lymphadenopathy Chest- non labored respirations, clear to auscultation bilaterally Cardiac-regular rate no peripheral edema Abdomen-soft, nontender, non distended Extremities-warm, well perfused Neurological-alert and oriented, no focal deficits Assessment & Plan Assessment and plan (1) Okeefe syndrome: Status: Acute Assessment & Plan narrative: 29-year-old female with Okeefe syndrome presents for routine screening, esophagoduodenoscopy and colonoscopy are indicated. I discussed the technical nature of the procedure with her as well as the procedural risk of bleeding infection intestinal perforation missed diagnosis need for further procedure. Her questions have been answered she is in agreement with this plan will proceed. COVID-19 COVID-19 status: Negative Result date/Date tested (Pos, Neg/Pending): 01/11/20
[2020-01-14] MEDS: diphenhydrAMINE 50 MG/ML VIAL IV (08:32)
[2020-01-14] MEDS: fentaNYL 250 MCG/5 ML INJ IV (08:52)
[2020-01-14] MEDS: MIDAZOLAM 5 MG/5 ML VIAL IV (09:04)
[2020-01-14] MEDS: LIDOCAINE 4% SOLN 50 ML 20 ML TOP (09:04)
--- NOTE | 2020-01-14 09:06 | PM.OP.ENDO ---
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 Time out was performed. Procedural sedation was administered with Versed and Fentanyl. A bite block was placed. the scope was inserted into the mouth and advanced through the esophagus and into the stomach. The pylorus was intubated and the duodenum was normal to the 2nd portion. The scope was retroflexed within the stomach and there was no hiatal hernia. No ulcers, or gastritis. The scope was withdrawn into the esophagus the Z line was seen at 35 cm from the incisions. There was no murphy's esophagitis or masses or strictures. Stomach was desufflated and scope removed. Patient tolerated procedure well. Patient placed in left lateral decubitus position. A rectal exam demonstrated no external hemorrhoids no internal masses. Colonoscopy scope was placed into the rectum and advanced through the colon to the cecum. The ileocecal valve was identified. The scope was then slowly withdrawn examining colon thoroughly in all directions. The colonoscopy was notable for the following 1. No masses or polyps 2. No diverticulosis 3. Quality of prep excellent Scope withdrawal time: 7 Sedation minutes: 33 Specimen(s): none sent Complications: none Impression: Normal esophagoduodenoscopy and colonoscopy Post-procedure Recommendations: Colonscopy in 3 years and EGD in 3 years Disposition: same day surgery
== END 2020-01-14 09:55 | disposition home or self-care (01) ==
PROVIDERS: PCP Family Medicine; Referring Provider Surgery; Visit Provider Surgery
PROC: 0DJ08ZZ Inspection of Upper Intestinal Tract, Via Natural or Artificial Opening Endoscopic (ICD-10-PCS; CPT 43235; principal; 2020-01-14 08:30)
PROC: 0DJD8ZZ Inspection of Lower Intestinal Tract, Via Natural or Artificial Opening Endoscopic (ICD-10-PCS; CPT 45378; 2020-01-14 08:30)
DX: Z12.11 Encounter for screening for malignant neoplasm of colon (principal); Z15.09 Genetic susceptibility to other malignant neoplasm; Z86.010 Personal history of colon polyps
CPT/HCPCS: 43235; 45378; 99152; 99153; J1200; J2250; J3010

== ENCOUNTER → 2021-04-20 10:38 | Outpatient (CLI) | payer OTHER, SELFPAY ==
[2021-04-20 17:40] LABS: COVID19 -Nasal RAPID POSITIVE (Negative)
== END ==
PROVIDERS: PCP Family Medicine; Visit Provider Nurse Practitioner Family
DX: U07.1 COVID-19 (principal)
CPT/HCPCS: 87635